=== PATIENT | male | born 1965 | race Caucasian/White ===

== ENCOUNTER 2018-02-06 06:39 | Emergency (ER) | payer OTHER ==
[2018-02-06] MEDS: KETOROLAC 30 MG/ML VIAL IVP ONE (07:10)
--- NOTE | 2018-02-06 07:10 | Emergency Department Record ---
History of Present Illness - General Chief Complaint: Abdominal Pain Stated Complaint: ABD PAIN Time Seen by Provider: 02/06/18 06:59 Source: Patient, RN notes reviewed Mode of Arrival: Ambulatory - History of Present Illness Onset/Timin -: Hour(s) Location: LLQ Radiation: L flank Severity scale (1-10): 8 Quality: Aching, Sharp Consistency: Constant - Related Data Home Medications Medication Instructions Recorded Confirmed Last Taken Naproxen 500 mg PO BID 02/06/18 02/06/18 Unknown Omeprazole [Prilosec] 20 mg PO DAILY 02/06/18 02/06/18 Unknown Allergies Allergy/AdvReac Type Severity Reaction Status Date / Time No Known Drug Allergies Allergy Verified 02/06/18 06:40 Travel Screening - Travel/Exposure Within Last 30 Days Have you traveled within the last 30 days?: No - Travel Symptoms Symptom Screening: None Review of Systems Reviewed: No additional complaints except as noted below Constitutional: Reports: As per HPI. Denies: Chills, Fever, Malaise, Night sweats, Weakness, Weight change Eyes: Reports: As per HPI. Denies: Eye discharge, Eye pain, Photophobia, Vision change ENT: Reports: As per HPI. Denies: Congestion, Dental pain, Ear pain, Epistaxis , Hearing loss, Throat pain Respiratory: Reports: As per HPI. Denies: Cough, Dyspnea, Hemoptysis, Stridor, Wheezes Cardiovascular: Reports: As per HPI. Denies: Arrhythmia, Chest pain, Dyspnea on exertion, Edema, Murmurs, Orthopnea, Palpitations, Paroxysmal nocturnal dyspnea, Rheumatic Fever, Syncope Endocrine: Reports: As per HPI. Denies: Fatigue, Heat or cold intolerance, Polydipsia, Polyuria Gastrointestinal: Reports: As per HPI, Abdominal pain. Denies: Constipation, Diarrhea, Hematemesis, Hematochezia, Melena, Nausea, Vomiting Genitourinary: Reports: As per HPI. Denies: Dysuria, Frequency, Hematuria, Incontinence, Retention, Testicular pain, Testicular mass, Urgency Musculoskeletal: Reports: As per HPI. Denies: Arthralgia, Back pain, Gout, Joint swelling, Myalgia, Neck pain Skin: Reports: As per HPI. Denies: Bruising, Change in color, Change in hair/ nails, Lesions, Pruritus, Rash Neurological: Reports: As per HPI. Denies: Abnormal gait, Confusion, Headache, Numbness, Paresthesias, Seizure, Tingling, Tremors, Vertigo, Weakness Psychiatric: Reports: As per HPI. Denies: Anxiety, Auditory hallucinations, Depression, Homicidal thoughts, Suicidal thoughts, Visual hallucinations Hematological/Lymphatic: Reports: As per HPI. Denies: Anemia, Blood Clots, Easy bleeding, Easy bruising, Swollen glands Past Medical History - SOCIAL HISTORY Smoking Status: Never smoker Alcohol Use: Occasional Drug Use: None - RESPIRATORY Hx Respiratory Disorders: No - CARDIOVASCULAR Hx Cardio Disorders: No - NEURO Hx Neuro Disorders: No - GI Hx GI Disorders: Yes Hx Reflux: Yes - Hx Genitourinary Disorders: No - ENDOCRINE Hx Endocrine Disorders: No - MUSCULOSKELETAL Hx Musculoskeletal Disorders: Yes Hx Arthritis: Yes - PSYCH Hx Psych Problems: No - HEMATOLOGY/ONCOLOGY Hx Hematology/Oncology Disorders: No Family Medical History Any Significant Family History?: No Family Hx Comment (NOT TO BE USED IN PLACE OF ITEMS BELOW): Adopted-no family hx Physical Exam - General General Appearance: Alert, Oriented x3, Cooperative, No acute distress - Head Head exam: Normal inspection - Eye Eye exam: Normal appearance, PERRL Pupils: Normal accommodation - ENT ENT exam: Normal exam, Mucous membranes moist, Normal external ear exam, Normal orophraynx, TM's normal bilaterally Ear exam: Normal external inspection. negative: External canal tenderness Nasal Exam: Normal inspection. negative: Discharge, Sinus tenderness Mouth exam: Normal external inspection, Tongue normal Teeth exam: Normal inspection. negative: Dental caries Throat exam: Normal inspection. negative: Tonsillar erythema, Tonsillar exudate - Neck Neck exam: Normal inspection, Full ROM. negative: Tenderness - Respiratory Respiratory exam: Normal lung sounds bilaterally. negative: Respiratory distress - Cardiovascular Cardiovascular Exam: Regular rate, Normal rhythm, Normal heart sounds - GI/Abdominal GI/Abdominal exam: Soft, Normal bowel sounds, Tenderness (left lower quad pain) - Rectal Rectal exam: Deferred - exam: Deferred - Extremities Extremities exam: Normal inspection, Full ROM, Normal capillary refill. negative: Tenderness - Back Back exam: Reports: Normal inspection, Full ROM. Denies: Muscle spasm, Rash noted, Tenderness - Neurological Neurological exam: Alert, Normal gait, Oriented X3, Reflexes normal - Psychiatric Psychiatric exam: Normal affect, Normal mood - Skin Skin exam: Dry, Intact, Normal color, Warm Course Vital Signs 02/06/18 06:46 Temperature 99.0 F Pulse Rate [ 78 Pulse Ox Probe] Respiratory 20 Rate Blood Pressure 138/78 [Left Arm] Pulse Ox 100 Medical Decision Making - Lab Data Result diagrams: 02/06/18 06:45 02/06/18 06:45 Disposition Clinical Impression: Abdominal pain Qualifiers: Abdominal location: left lower quadrant Qualified Code(s): R10.32 - Left lower quadrant pain Forms: Patient Portal Access Quality - Quality Measures Quality Measures: N/A - Blood Pressure Screening Does Patient Have Any of the Following: No Blood Pressure Classification: Pre-Hypertensive BP Reading Systolic Measurement: 138 Diastolic Measurement: 78 Screening for High Blood Pressure: < Pre-Hypertensive BP, F/U Documented > [ G8950] Pre-Hypertensive Follow-up Interventions: Referral to alternative/primary care provider.
[2018-02-06 07:15] LABS: HEMATOCRIT 47.8 % (42.0-52.0); HEMOGLOBIN 15.9 gm/dl (14.0-18.0); MEAN CELL VOLUME 88.7 fl (81-97); MEAN CORPUSCULAR HEMOGLOBIN 29.5 pg (27-33); MEAN CORPUSCULAR HGB CONC 33.3 g/dl (32-36); MEAN PLATELET VOLUME 11.3 fl (7.4-10.4); PLATELET COUNT 244 K/uL (130-400); RED BLOOD COUNT 5.39 M/uL (4.40-5.70)
[2018-02-06 07:29] LABS: BLOOD UREA NITROGEN 20 mg/dL (6-20); CREATININE 0.9 mg/dL (0.7-1.2); EST GLOMERULAR FILTRATION RATE > 60 mL/min
[2018-02-06] MEDS: 0.9 % SODIUM CHLORIDE 1000ML 1,000 ML IV PRN (07:29)
[2018-02-06 07:31] LABS: GLUCOSE,RANDOM 137 mg/dL (74-109)
[2018-02-06 07:34] LABS: ALBUMIN 4.4 g/dL (4.0-5.0); ALKALINE PHOSPHATASE 91 U/L (40-129); ALT/SGPT 28 U/L (<41); AST/SGOT 28 U/L (10.0-50.0); BILIRUBIN,DIRECT 0.2 mg/dL (0-0.3); LIPASE 15 U/L (13-60)
[2018-02-06 07:37] LABS: PLATELET ESTIMATE NORMAL (NORMAL)
--- NOTE | 2018-02-06 07:50 | Emergency Department Record ---
History of Present Illness - General Chief Complaint: Abdominal Pain Stated Complaint: ABD PAIN Time Seen by Provider: 02/06/18 06:59 Source: Patient, RN notes reviewed Mode of Arrival: Ambulatory - History of Present Illness Onset/Timin -: Hour(s) Location: LLQ Radiation: L flank Severity scale (1-10): 8 Quality: Aching, Sharp Consistency: Constant - Related Data Home Medications Medication Instructions Recorded Confirmed Last Taken Naproxen 500 mg PO BID 02/06/18 02/06/18 Unknown Omeprazole [Prilosec] 20 mg PO DAILY 02/06/18 02/06/18 Unknown Previous Rx's Medication Instructions Recorded Ciprofloxacin HCl [Cipro] 500 mg PO Q12HR #20 tablet 02/06/18 Hydrocodone/Acetaminophen [Jessie 1 each PO Q4HR #18 tablet 02/06/18 5-325 Tablet] Metronidazole [Flagyl] 500 mg PO TID #30 tablet 02/06/18 Allergies Allergy/AdvReac Type Severity Reaction Status Date / Time No Known Drug Allergies Allergy Verified 02/06/18 06:40 Travel Screening - Travel/Exposure Within Last 30 Days Have you traveled within the last 30 days?: No - Travel Symptoms Symptom Screening: None Review of Systems Constitutional: Reports: As per HPI. Denies: Chills, Fever, Malaise, Night sweats, Weakness, Weight change Eyes: Reports: As per HPI. Denies: Eye discharge, Eye pain, Photophobia, Vision change ENT: Reports: As per HPI. Denies: Congestion, Dental pain, Ear pain, Epistaxis , Hearing loss, Throat pain Respiratory: Reports: As per HPI. Denies: Cough, Dyspnea, Hemoptysis, Stridor, Wheezes Cardiovascular: Reports: As per HPI. Denies: Arrhythmia, Chest pain, Dyspnea on exertion, Edema, Murmurs, Orthopnea, Palpitations, Paroxysmal nocturnal dyspnea, Rheumatic Fever, Syncope Endocrine: Reports: As per HPI. Denies: Fatigue, Heat or cold intolerance, Polydipsia, Polyuria Gastrointestinal: Reports: As per HPI, Abdominal pain. Denies: Constipation, Diarrhea, Hematemesis, Hematochezia, Melena, Nausea, Vomiting Genitourinary: Reports: As per HPI. Denies: Dysuria, Frequency, Hematuria, Incontinence, Retention, Testicular pain, Testicular mass, Urgency Musculoskeletal: Reports: As per HPI. Denies: Arthralgia, Back pain, Gout, Joint swelling, Myalgia, Neck pain Skin: Reports: As per HPI. Denies: Bruising, Change in color, Change in hair/ nails, Lesions, Pruritus, Rash Neurological: Reports: As per HPI. Denies: Abnormal gait, Confusion, Headache, Numbness, Paresthesias, Seizure, Tingling, Tremors, Vertigo, Weakness Psychiatric: Reports: As per HPI. Denies: Anxiety, Auditory hallucinations, Depression, Homicidal thoughts, Suicidal thoughts, Visual hallucinations Hematological/Lymphatic: Reports: As per HPI. Denies: Anemia, Blood Clots, Easy bleeding, Easy bruising, Swollen glands Past Medical History - SOCIAL HISTORY Smoking Status: Never smoker Alcohol Use: Occasional Drug Use: None - RESPIRATORY Hx Respiratory Disorders: No - CARDIOVASCULAR Hx Cardio Disorders: No - NEURO Hx Neuro Disorders: No - GI Hx GI Disorders: Yes Hx Reflux: Yes - Hx Genitourinary Disorders: No - ENDOCRINE Hx Endocrine Disorders: No - MUSCULOSKELETAL Hx Musculoskeletal Disorders: Yes Hx Arthritis: Yes - PSYCH Hx Psych Problems: No - HEMATOLOGY/ONCOLOGY Hx Hematology/Oncology Disorders: No Family Medical History Any Significant Family History?: No Family Hx Comment (NOT TO BE USED IN PLACE OF ITEMS BELOW): Adopted-no family hx Physical Exam - General General Appearance: Alert, Oriented x3, Cooperative, No acute distress - Head Head exam: Normal inspection - Eye Eye exam: Normal appearance, PERRL Pupils: Normal accommodation - ENT ENT exam: Normal exam, Mucous membranes moist, Normal external ear exam, Normal orophraynx, TM's normal bilaterally Ear exam: Normal external inspection. negative: External canal tenderness Nasal Exam: Normal inspection. negative: Discharge, Sinus tenderness Mouth exam: Normal external inspection, Tongue normal Teeth exam: Normal inspection. negative: Dental caries Throat exam: Normal inspection. negative: Tonsillar erythema, Tonsillar exudate - Neck Neck exam: Normal inspection, Full ROM. negative: Tenderness - Respiratory Respiratory exam: Normal lung sounds bilaterally. negative: Respiratory distress - Cardiovascular Cardiovascular Exam: Regular rate, Normal rhythm, Normal heart sounds - GI/Abdominal GI/Abdominal exam: Soft, Normal bowel sounds, Tenderness (left lower quad pain no rebound or rigidity) - Rectal Rectal exam: Deferred - exam: Deferred - Extremities Extremities exam: Normal inspection, Full ROM, Normal capillary refill. negative: Tenderness - Back Back exam: Reports: Normal inspection, Full ROM. Denies: Muscle spasm, Rash noted, Tenderness - Neurological Neurological exam: Alert, Normal gait, Oriented X3, Reflexes normal - Psychiatric Psychiatric exam: Normal affect, Normal mood - Skin Skin exam: Dry, Intact, Normal color, Warm Course Vital Signs 02/06/18 06:46 Temperature 99.0 F Pulse Rate [ 78 Pulse Ox Probe] Respiratory 20 Rate Blood Pressure 138/78 [Left Arm] Pulse Ox 100 Medical Decision Making - Data Complexity MDM Data: X-Ray Ordered and/or Reviewed (diverticulitis,CT scan) - Lab Data Result diagrams: 02/06/18 06:45 02/06/18 06:45 Lab Results 02/06/18 Range/Units 06:45 WBC 18.0 H (4.2-12.2) K/uL RBC 5.39 (4.40-5.70) M/uL Hgb 15.9 (14.0-18.0) gm/dl Hct 47.8 (42.0-52.0) % MCV 88.7 (81-97) fl MCH 29.5 (27-33) pg MCHC 33.3 (32-36) g/dl RDW 14.0 (11.5-14.5) % Plt Count 244 (130-400) K/uL MPV 11.3 H (7.4-10.4) fl Eosinophils % Not Reportable Basophils % Not Reportable Disposition Clinical Impression: Diverticulitis Abdominal pain Qualifiers: Abdominal location: left lower quadrant Qualified Code(s): R10.32 - Left lower quadrant pain Disposition: Home, Self-Care Condition: (1) Good Instructions: Diverticulitis (ED) Additional Instructions: drink lots of fluid with a bland low fiber diet follow up with Dr. Monroy on sunday or return to ED if abdominal pain is worse or if he develops a fever. Prescriptions: Hydrocodone/Acetaminophen [Jessie 5-325 Tablet] 1 each PO Q4HR #18 tablet Ciprofloxacin HCl [Cipro] 500 mg PO Q12HR #20 tablet Metronidazole [Flagyl] 500 mg PO TID #30 tablet Forms: Patient Portal Access Time of Disposition: 08:34 Quality - Quality Measures Quality Measures: N/A - Blood Pressure Screening Does Patient Have Any of the Following: No Blood Pressure Classification: Pre-Hypertensive BP Reading Systolic Measurement: 138 Diastolic Measurement: 78 Screening for High Blood Pressure: < Pre-Hypertensive BP, F/U Documented > [ G8950] Pre-Hypertensive Follow-up Interventions: Referral to alternative/primary care provider.
[2018-02-06] MEDS: CIPROFLOXACIN LACTATE/D5W 400 MG/200 ML BAG IVPB ONE (08:07)
[2018-02-06] MEDS: METRONIDAZOLE IVPB 500 MG/100 ML BAG IVPB ONE (09:06)
[2018-02-06 10:19] LABS: URINE APPEARANCE CLEAR; URINE BILIRUBIN NEGATIVE (NEGATIVE); URINE BLOOD SMALL (NEGATIVE); URINE COLOR YELLOW; URINE GLUCOSE (UA) NEGATIVE (NEGATIVE); URINE KETONE NEGATIVE (NEGATIVE); URINE LEUKOCYTE ESTERASE NEGATIVE (NEGATIVE); URINE NITRITE NEGATIVE (NEGATIVE); URINE PROTEIN NEGATIVE (NEGATIVE); URINE UROBILINOGEN 0.2 E.U./dL (0.20 - 1.00)
[2018-02-06 10:52] LABS: URINE EPITHELIAL CELLS NONE SEEN (FEW); URINE RBC 0 - 2 (NONE SEEN); URINE WBC NONE SEEN (0-2/hpf)
--- NOTE | 2018-02-06 15:28 | CT SCAN REPORT ---
EXAM: CT OF THE ABDOMEN AND PELVIS WITHOUT CONTRAST HISTORY: LEFT LOWER ABDOMINAL PAIN/FLANK PAIN FOR EIGHTEEN HOURS. PAIN RADIATES INTO LEFT TESTICLE. TECHNIQUE: Thin collimation helical CT examination of the abdomen and pelvis was performed without oral or intravenous contrast administration. Lack of oral and IV contrast utilization limits evaluation of the bowel and solid viscera respectively. Comparison: None. FINDINGS: There are calcified lymph nodes in the azygoesophageal recess and inferior right hilum consistent with healed granulomatous disease. Additionally there is a calcified granuloma within the lateral segment of the right middle lobe adjacent to the major fissure measuring 7.5 mm. The lung bases are otherwise grossly clear and there is no pleural or pericardial effusion. The heart is not enlarged. Punctate calcifications are scattered within the liver and spleen consistent with healed granulomatous disease. No suspicious focal abnormality within the liver, spleen, pancreas nor adrenal glands to the extent visualized on this noncontrast examination. The gallbladder is unremarkable and no biliary ductal dilatation is seen. The kidneys are normal in size, position and are smoothly marginated. No nephrolithiasis is demonstrated. The left renal collecting system pelvis is mildly prominent to the level of the UPJ beyond which the ureter is normal in appearance. No obstructing calculus is seen at this level. This may relate to developmental UPJ stenosis. The renal collecting systems are otherwise nondilated though evaluation of the distal left ureter is limited by fat stranding in this region. No definite ureteral calculus. No intrinsic urinary bladder abnormality is seen. Small round calcifications within the inferior pelvis do not appear to be located in the distal ureters and are likely phleboliths. No definite pelvic mass nor adenopathy. There is diverticulosis of the sigmoid colon. There is segmental wall thickening of the proximal to mid sigmoid colon with moderate adjacent fat stranding. Some of this stranding does appear to be extraperitoneal. Tiny gas collections contiguous with this segment of bowel likely are within diverticula with extraluminal air less likely. No free intraperitoneal air. No other bowel abnormality is seen. The appendix is visualized and normal in appearance. There is minor fat density prominence in the left inguinal canal consistent with spermatic cord lipoma. No lytic or blastic bone lesion. There are mild degenerative changes scattered throughout the visualized spine. There is atherosclerosis of the abdominal aorta and iliac arteries, mild in degree without aneurysmal dilatation. IMPRESSION: 1. MODERATE MESENTERIC FAT STRANDING IN THE LEFT LOWER QUADRANT WELL RETROPERITONEAL FAT INVOLVEMENT. THERE IS A CONTIGUOUS SEGMENT OF PROXIMAL SIGMOID COLON CONTAINING DIVERTICULA APPEARING TO HAVE WALL THICKENING. THESE FINDINGS ARE SUSPICIOUS FOR ACUTE COLITIS/DIVERTICULITIS. NO DEFINITE ORGANIZED ABSCESS NOR FREE INTRAPERITONEAL AIR. TINY GAS COLLECTIONS CONTIGUOUS WITH THE WALL OF THE SEGMENT LIKELY ARE GAS WITHIN DIVERTICULA WITH EXTRALUMINAL AIR LESS LIKELY. 2. NO DEFINITE OBSTRUCTING RENAL COLLECTING SYSTEM CALCULUS. MILD PROMINENCE OF THE LEFT RENAL COLLECTING SYSTEM PELVIS TO THE LEVEL OF THE UPJ LIKELY DEVELOPMENTAL. 3. HEALED GRANULOMATOUS DISEASE WITHIN THE RIGHT HEMITHORAX, LIVER AND SPLEEN. JOB NUMBER: [id number] MTDD
== END 2018-02-06 11:07 | disposition home or self-care (01) ==
LOC: ER 06:39
DX: K57.92 Diverticulitis of intestine, part unspecified, without perforation or abscess without bleeding (principal); R10.32 Left lower quadrant pain; F17.220 Nicotine dependence, chewing tobacco, uncomplicated
CPT/HCPCS: 74176; 80048; 80076; 81001; 83690; 85027; 96365; 96366; 96367; 96375; 99284; J1885

== ENCOUNTER 2018-02-15 18:22 | Emergency (ER) | payer OTHER ==
[2018-02-15] MEDS ORDERED: ONDANSETRON HCL IV 4 MG/2 ML VIAL IVP ONE (18:49)
[2018-02-15] MEDS ORDERED: MORPHINE SULFATE 10 MG/ML VIAL IVP ONE (18:50)
--- NOTE | 2018-02-15 18:54 | Emergency Department Record ---
History of Present Illness - General Stated Complaint: PAIN IN LOWER BACK Time Seen by Provider: 02/15/18 18:35 Source: Patient Mode of Arrival: Ambulatory Limitations: No limitations - History of Present Illness Initial Comments: 53 yo male presents to ED for evaluation of low back pain and continued abdominal pain symptoms for the past 2 weeks. Patient reports that he was diagnosed with diverticulitis 2 weeks ago, reports that his symptoms have not significantly improved. Patient reports that he was seen by his PCP yesterday who was concerned that his WBC count is still elevated despite antibiotics. Patient was initially concerned about shingles, but denies rash and reports that his back pain symptoms are in the midline. Patient denies urinary retention or lower extremity weakness symptoms, denies previous back surgery of history of IVDA. Patient also denies health problems at his baseline. MD Complaint: Abdominal pain Onset/Timin -: Week(s) Location: LLQ Radiation: None Migration to: No migration Severity: Moderate Quality: Aching Consistency: Constant Improves With: Nothing Worsens With: Nothing - Related Data Previous Rx's Medication Instructions Recorded Ciprofloxacin HCl [Cipro] 500 mg PO Q12HR #20 tablet 02/06/18 Metronidazole [Flagyl] 500 mg PO TID #30 tablet 02/06/18 Allergies Allergy/AdvReac Type Severity Reaction Status Date / Time No Known Drug Allergies Allergy Verified 02/06/18 06:40 Review of Systems Constitutional: Denies: Chills, Fever, Malaise, Night sweats Eyes: Denies: Eye discharge, Eye pain ENT: Denies: Congestion, Ear pain, Epistaxis Respiratory: Denies: Cough, Dyspnea Cardiovascular: Denies: Chest pain, Dyspnea on exertion Endocrine: Denies: Fatigue, Heat or cold intolerance Gastrointestinal: Reports: Abdominal pain. Denies: Nausea, Vomiting Genitourinary: Denies: Testicular pain, Testicular mass Musculoskeletal: Reports: Back pain. Denies: Arthralgia, Gout, Joint swelling Skin: Denies: Bruising, Change in color Neurological: Denies: Abnormal gait, Confusion, Headache Psychiatric: Denies: Anxiety Hematological/Lymphatic: Denies: Anemia, Blood Clots Past Medical History - SOCIAL HISTORY Smoking Status: Never smoker Drug Use: None - RESPIRATORY Hx Respiratory Disorders: No - CARDIOVASCULAR Hx Cardio Disorders: No - NEURO Hx Neuro Disorders: No - GI Hx GI Disorders: Yes Hx Reflux: Yes - Hx Genitourinary Disorders: No - ENDOCRINE Hx Endocrine Disorders: No - MUSCULOSKELETAL Hx Musculoskeletal Disorders: Yes Hx Arthritis: Yes - PSYCH Hx Psych Problems: No - HEMATOLOGY/ONCOLOGY Hx Hematology/Oncology Disorders: No Family Medical History Family Hx Comment (NOT TO BE USED IN PLACE OF ITEMS BELOW): Adopted-no family hx Physical Exam - General General Appearance: Alert, Oriented x3, Cooperative, Mild distress Limitations: No limitations - Head Head exam: Atraumatic, Normocephalic, Normal inspection Head exam detail: negative: Abrasion, Contusion, Funes's sign, General tenderness, Hematoma, Laceration - Eye Eye exam: Normal appearance. negative: Conjunctival injection, Periorbital swelling, Periorbital tenderness, Scleral icterus - ENT Ear exam: negative: Auricular hematoma, Auricular trauma Nasal Exam: negative: Active bleeding, Discharge, Dried blood, Foreign body Mouth exam: negative: Drooling, Laceration, Muffled voice, Tongue elevation - Neck Neck exam: Normal inspection. negative: Meningismus, Tenderness - Respiratory Respiratory exam: Normal lung sounds bilaterally. negative: Respiratory distress, Rhonchi, Stridor, Wheezes - Cardiovascular Cardiovascular Exam: Regular rate, Normal rhythm, Normal heart sounds - GI/Abdominal GI/Abdominal exam: Soft, Tenderness (Mild TTP LLQ on examination, no rebound or guarding present.). negative: Rebound, Rigid - Rectal Rectal exam: Deferred - exam: Deferred - Extremities Extremities exam: Normal inspection. negative: Calf tenderness, Pedal edema, Tenderness - Back Back exam: Reports: Tenderness (TTP to the low midline region, no rash present) . Denies: CVA tenderness (R), CVA tenderness (L), Rash noted - Neurological Neurological exam: Alert, Normal gait, Oriented X3 - Psychiatric Psychiatric exam: Normal affect, Normal mood - Skin Skin exam: Normal color. negative: Abrasion Type of lesion: negative: abrasion Course - Reevaluation(s) Reevaluation #1: 02/15/18 19:59 Laboratory studies were reviewed, WBC 20.3, labs are otherwise grossly unremarkable for an acute process. Reevaluation #2: 02/15/18 20:22 Patient just returned from CT, updated on all results thus far and pending CT imaging results. Patient reports improvement in his pain symptoms on re-examination. Reevaluation #3: 02/15/18 21:11 CT Abdomen and Pelvis: Large mariann-diverticular abscess measuring 6.2x8.2x8.8 cm There may be involvement of the appendix due to the size There is compression of the ureters bilaterally. Dr. Castellanos pagesekou for surgical consultation. Medical Decision Making - Lab Data Result diagrams: 02/15/18 19:18 02/15/18 19:18 Disposition Disposition: Transfer Clinical Impression: Colonic diverticular abscess Disposition: Acute Care Hospital Transfer Transfer To: [facility] Reason For Transfer: Diverticular abscess, IR consultation Accepting Physician: Emanuel Time Discussed w/Accepting Physician: : Condition: (2) Stable Time of Disposition: :27 Quality - Quality Measures Quality Measures: N/A - Blood Pressure Screening Does Patient Have Any of the Following: No Blood Pressure Classification: Pre-Hypertensive BP Reading Systolic Measurement: 132 Diastolic Measurement: 74 Screening for High Blood Pressure: < Pre-Hypertensive BP, F/U Documented > [ G8950] Pre-Hypertensive Follow-up Interventions: Referral to alternative/primary care provider.
[2018-02-15] MEDS ORDERED: 0.9 % SODIUM CHLORIDE 1000ML 1,000 ML IV SCH (19:00)
[2018-02-15 19:43] LABS: BLOOD UREA NITROGEN 8 mg/dL (6-20); CREATININE 0.9 mg/dL (0.7-1.2); EST GLOMERULAR FILTRATION RATE > 60 mL/min
[2018-02-15 19:44] LABS: TOTAL PROTEIN 6.2 g/dL (6.6-8.7)
[2018-02-15 19:46] LABS: GLUCOSE,RANDOM 125 mg/dL (74-109)
[2018-02-15 19:47] LABS: HEMATOCRIT 43.9 % (42.0-52.0); HEMOGLOBIN 14.5 gm/dl (14.0-18.0); MEAN CELL VOLUME 87.6 fl (81-97); MEAN CORPUSCULAR HEMOGLOBIN 28.9 pg (27-33); MEAN PLATELET VOLUME 10.2 fl (7.4-10.4); PLATELET COUNT 393 K/uL (130-400); RED BLOOD COUNT 5.01 M/uL (4.40-5.70); RED CELL DISTRIBUTION WIDTH 14.6 % (11.5-14.5)
[2018-02-15 19:48] LABS: URINE APPEARANCE CLEAR; URINE BILIRUBIN NEGATIVE (NEGATIVE); URINE BLOOD NEGATIVE (NEGATIVE); URINE COLOR YELLOW; URINE GLUCOSE (UA) NEGATIVE (NEGATIVE); URINE KETONE NEGATIVE (NEGATIVE); URINE LEUKOCYTE ESTERASE NEGATIVE (NEGATIVE); URINE NITRITE NEGATIVE (NEGATIVE); URINE PROTEIN NEGATIVE (NEGATIVE); URINE UROBILINOGEN 0.2 E.U./dL (0.20 - 1.00)
[2018-02-15 19:49] LABS: ALB/GLOB RATIO 1.2 (1.1-1.8); ALBUMIN 3.4 g/dL (4.0-5.0); ALKALINE PHOSPHATASE 142 U/L (40-129); ALT/SGPT 25 U/L (<41); AST/SGOT 25 U/L (10.0-50.0); LIPASE 18 U/L (13-60)
[2018-02-15 19:52] LABS: WHITE BLOOD COUNT W/O DIFF 20.3 K/uL (4.2-12.2)
[2018-02-15] MEDS ORDERED: ERTAPENEM SODIUM 1 G in 0.9 % SODIUM CHLORIDE 100ML 100 ML IVPB ONE (20:25)
--- NOTE | 2018-02-17 20:02 | CT SCAN REPORT ---
EXAM: CT SCAN ABDOMEN/PELVIS W CONTRAST HISTORY: ABDOMINAL AND BACK PAIN. TECHNIQUE: Axial CT scan of the abdomen and pelvis performed following the intravenous administration of iodinated contrast. No oral contrast given at the referring physician's request. Please see the medical record for IV contrast specifics. COMPARISON: CT abdomen and pelvis 02/06/18. FINDINGS: Calcified granuloma right middle lobe abutting the fissure with tiny calcified hepatic and splenic granulomas again noted. No calcified gallstones seen within the gallbladder. Mild prominence of the left renal pelvis and also the right renal pelvis, both of which are more pronounced than before. Slight prominence of the intrarenal collecting system bilaterally as well. Ureters themselves do not appear prominently dilated but within the pelvis, there now appears to be a relatively large irregularly- marginated relatively low-density collection centered in the sigmoid mesentery, which is likely a large peridiverticular abscess that has become apparent since the prior study. The associated inflammatory change may potentially be causing some slight narrowing of the ureters through this region resulting in the mild prominence of the collecting systems seen today. Evaluation of the bowel is somewhat limited without oral contrast but much of the sigmoid colon, again, has a somewhat thick-walled appearance as before with scattered diverticula and findings are consistent with progression in changes of acute sigmoid diverticulitis with associated development of a peridiverticular abscess. Appendix is at about the upper limits of normal currently measuring about 9.9 mm in size. Appendix extends to be adjacent to the inflammatory process associated with the presumed diverticulitis and some minor inflammatory change on a secondary basis in the tip of the appendix cannot be excluded. No actual free intraperitoneal air identified. IMPRESSION: 1. FINDINGS LIKELY REPRESENTING PROGRESSION IN SIGMOID DIVERTICULITIS WITH NOW DEVELOPMENT OF A RELATIVELY LARGE PERIDIVERTICULAR ABSCESS MEASURING ABOUT 8.2 CM IN TRANSVERSE, BY 6.2 CM IN AP DIAMETER AND 8.8 CM IN CRANIOCAUDAL DIMENSION. THE TIP OF THE APPENDIX ABUTS THIS LARGE COLLECTION AND THE APPENDIX IS AT ABOUT THE UPPER LIMITS OF NORMAL IN SIZE. SOME MILD SECONDARY INVOLVEMENT OF THE TIP OF THE APPENDIX CANNOT BE EXCLUDED IN THIS INFLAMMATORY PROCESS. 2. SLIGHTLY GREATER PROMINENCE OF THE INTRARENAL COLLECTING SYSTEMS AND RENAL PELVES COMPARED WITH THE PRIOR STUDY AND SOME MILD COMPRESSION OF THE PELVIC URETERS RELATED TO THE PRESUMED PERIDIVERTICULAR ABSCESS MAY ALSO BE PRESENT. 3. TINY CALCIFIED GRANULOMA RIGHT LUNG BASE WITH CALCIFIED SPLENIC AND HEPATIC GRANULOMAS AGAIN EVIDENT. JOB NUMBER: [id number] [facility]
== END 2018-02-15 21:40 | disposition short-term general hospital (02) ==
LOC: ER 18:22
DX: K57.20 Diverticulitis of large intestine with perforation and abscess without bleeding (principal)
CPT/HCPCS: 99285 ×2; 96365; 96375; 83690; 80053; 81003; 85027; 74177; Q9967; J1335; J2405; J2270; J7030

== ENCOUNTER 2018-06-28 12:53 | Day surgery (SDC) | payer OTHER ==
[2018-06-28] MEDS ORDERED: LIDOCAINE 2% MDV (20MG/ML) 20ML VIAL IV ONE (12:54)
[2018-06-28] MEDS ORDERED: PROPOFOL 10 MG/ML VIAL IV ONE (12:54)
--- NOTE | 2018-07-01 10:10 | Operative Note ---
DATE OF SURGERY: 06/28/18 SURGEON: Mykel Yeager MD OPERATION: COLONOSCOPY. INDICATIONS: This is a 53-year-old male with history of colon polyps who presented for surveillance colonoscopy. He also has a history of diverticular disease. POSTOPERATIVE DIAGNOSES: 1. A 6 mm sessile descending colon polyp that was removed by cold snare. 2. Two 2-3 mm sessile polyps in the rectum that were removed by cold biopsy forceps. 3. Left-sided colonic diverticulosis. ANESTHESIA: Sedation is per Anesthesia. Pulse oximetry was monitored throughout the procedure to maintain O2 saturation of 90% or greater. Supplemental oxygen was administered via nasal cannula. Cardiac and vital signs were monitored throughout the duration of the procedure, and they were stable. The procedure of colonoscopy and risks and alternatives of the procedure, including the risk of bleeding and perforation, among others, were explained to the patient who voiced understanding and agreed to have the procedure done. Physical examination was performed, and the patient was found stable for sedation. PROCEDURE: The patient was placed in the left lateral position. Sedation was initiated. A digital rectal exam was performed and showed some mild external hemorrhoids with no palpable rectal masses. An Olympus PCF-180AL colonoscope was then inserted into the rectum under direct visualization. It was advanced to the cecum without difficulty. The ileocecal valve and appendiceal orifice were identified and photographed. The colonic mucosa was carefully examined upon introduction of the colonoscope. There were scattered diverticula noted in the sigmoid and descending colon. In the descending colon was a 6 mm sessile polyp that was noted and was removed by cold snare. The rest of the colonic mucosa appeared normal. The ileocecal valve was identified and intubated and the terminal ileal mucosa was inspected for about 10 cm and it appeared normal. The colonoscope was then withdrawn while carefully examining the colonic mucosal surfaces. No other lesions were noted in the cecum, ascending colon, transverse colon, or descending colon as well as sigmoid colon. In the rectum, two 2-3 mm sessile polyps were noted and they were removed by cold biopsy forceps. There were no other lesions noted. Retroflexion was performed and grade 1 internal hemorrhoids were noted. The colonoscope was then withdrawn and the procedure was terminated. The patient tolerated the procedure well without any immediate complications. The patient remained with stable vital signs and was transferred to the recovery room. RECOMMENDATIONS: 1. The patient should be on a high-fiber diet. 2. The patient is to have a repeat colonoscopy for surveillance in 3-5 years depending on the histology of the polyps. Thank you for allowing me to participate in the care of your patient. CC: Heidy ALCALA
== END 2018-06-28 14:30 | disposition home or self-care (01) ==
LOC: HOP 12:53
PROVIDERS: ATTEND Internal Medicine Gastroenterology
DX: Z12.11 Encounter for screening for malignant neoplasm of colon (principal); Z86.010 Personal history of colon polyps; D12.4 Benign neoplasm of descending colon; K62.1 Rectal polyp; K57.30 Diverticulosis of large intestine without perforation or abscess without bleeding; K21.9 Gastro-esophageal reflux disease without esophagitis